=== PATIENT | male | born 1965 | race Caucasian/White ===

== ENCOUNTER 2017-08-12 18:02 | Emergency (ER) | payer BC ==
[~2017-08-12] VITALS: Ht 175.3 cm; Wt 87.3 kg
[~2017-08-12 18:02] MED LIST: ATEN50TA8 PO; CLX20 PO; PERCOCET 5/325M1 TAB PO; ZCRUNK
[2017-08-12 18:30] VITALS: BP 127/82; PULSE 67; TEMP 36.7; O2SAT 96; Ht 175.3 cm; Wt 87.3 kg
[2017-08-12] MEDS ORDERED: PROPARACAINE HCL 0.5% OP SOLN 15 ML BTL OPL STA (18:50)
[2017-08-12] MEDS ORDERED: CIPROFLOXACIN HCL 0.3% OP SOLN 2.5 ML BTL OPL STA (19:14)
--- NOTE | 2017-08-12 19:14 | EMERGENCY ROOM VISIT NOTE ---
ED Visit Note First contact with patient: 18:33 CHIEF COMPLAINT: Eye pain HISTORY OF PRESENT ILLNESS: This 52-year-old male patient presents to the emergency department by private vehicle complaining of pain in the left eye since yesterday. 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 He also states he got a small flash from the tack welder in his left eye and thinks that is causing some irritation as well. Today he had increasing pain in his left eye. There has been a constant moderate pain and irritation, redness and clear watery discharge from the eye. He reports increased pain with blinking. There is a mild blurring of vision at times and light bothers the eye. The vision has not been decreased over all. The patient does not wear contacts. The patient rates the pain as burning and scratching and 8/10. The patient has not had previous injuries to this eye. Tetanus shot is up to date. REVIEW OF SYSTEMS: A 6 system review of systems was completed with positives and pertinent negatives listed in the HPI. ALLERGIES: NKA MEDICATIONS: Reviewed in chart. PMH: Hypertension, hyperlipidemia, depression. SOCIAL HISTORY: Lives at home. Current everyday smoker. PHYSICAL EXAM: Vital Signs: Reviewed Nurse's notes, vital signs stable. Visual acuity 20/15 in the right eye, unable to obtain in the left eye due to pain. GENERAL: This is a 52-year-old male, in no acute distress, but who is uncomfortable from the eye problem. Well-developed well-nourished. EYES: The pupils are equal round and reactive to light and accommodation. EOMs are full and without tenderness. There is discharge of clear tears from the left eye which is injected. There is a small black foreign body visible under the eyelid after lid eversion, the lid was swept and this was successfully removed. Patient reported immediate improvement after removal of the FB. Funduscopic exam reveals no hemorrhages, papilledema, or other abnormalities. No foreign body was seen embedded in the cornea under slit lamp exam. The cornea was clear and no hyphema was seen. Fluorescein uptake was observed with ultraviolet light significant for multiple linear corneal abrasions at the 5 o' clock position overlying the iris. There is also diffuse uptake of fluorescein and generalized haziness of the cornea suggestive of UV keratitis. EMERGENCY DEPARTMENT COURSE: I examined the patient. Foreign body was removed from under the upper lid with immediate improvement in patient's pain. Proparacaine 2 drops were placed in the patient's left eye. Patient's vision grossly intact with correction on exam after I pain controlled. A slit lamp exam was performed as above, noting a mild UV keratitis and corneal abrasion. Ciloxan two drops was placed in the patient's left eye. Patient was provided with an Rx for Lacri-Lube. Patient was educated regarding ongoing management of his eye, follow-up, and return precautions should his symptoms worsen, he verbalized understanding. The patient was discharged home in good condition. Current/Historical Medications Scheduled , 1 TAB PO Q4-6HR PRN Artificial Tears Oph Oint (Lacri-Lube Sop Oph Oint), 0.25-0.5 INCH OPL QID Atenolol (Tenormin), 50 MG PO DAILY Citalopram (Celexa *), 20 MG PO DAILY Miscellaneous Medications Simvastatin (Zocor Unkown Dose) Allergies Coded Allergies: No Known Allergies (Unverified , 08/12/17) Vital Signs Date Time Temp Pulse Resp B/P (MAP) Pulse Ox O2 Delivery O2 Flow Rate FiO2 08/12/17 18:30 36.7 67 18 127/82 96 Room Air Medications Administered Medications (Trade) Dose Ordered Sig/Shahriar Route Start Time Stop Time Status Last Admin Dose Admin Ciprofloxacin HCl (Ciprofloxacin 0.3% Op Soln) 2 drops NOW STAT OPL 08/12/17 19:14 08/12/17 19:16 DC 08/12/17 19:54 2 DROPS Departure Information Impression Primary Impression: Left corneal abrasion Additional Impressions: UV keratitis Foreign body of left eyelid Dispostion Home / Self-Care Condition GOOD Prescriptions Artificial Tears Oph Oint (Lacri-Lube Sop Oph Oint) Oint 0.25-0.5 INCH OPL QID for 5 Days, #1 TUBE TO THE AFFECTED EYE UP TO QID PRN Prov: Lori Richardson CRNP 08/12/17 Referrals No Doctor, Assigned (PCP) Patient Instructions ED Eye Injury Corneal Abrasion, ED Keratitis UV, [facility] Additional Instructions DISCHARGE INSTRUCTIONS AND TREATMENT: Use the Ciloxin two drops in the left eye every two hours while awake for two days; then two drops every four hours while awake for three days. Use the prescribed Lacrilube ointment to the left eye 3-4 times a day for comfort. Use Ibuprofen 600 mg or Tylenol 1000 mg every 6 hrs as needed for moderate pain. Cool compresses to the outer eye as needed for comfort. Please follow up with your eye doctor in 24-48 hours for a recheck, or return to the ER if you are unable to get in with your eye doctor. Return to the ED for increasing pain, discharge from the eye, or new changes in vision. Problem Qualifiers Primary Impression: Left corneal abrasion Encounter type: initial encounter Qualified Codes: S05.02XA - Injury of conjunctiva and corneal abrasion without foreign body, left eye, initial encounter Additional Impressions: UV keratitis Laterality: left Qualified Codes: H16.132 - Photokeratitis, left eye
[2017-08-12] MEDS ORDERED: ARTIOIN OPL (19:52)
== END 2017-08-12 19:57 | disposition home or self-care (01) ==
LOC: C.EDB 18:04 → C.EDD 19:57
DX: T15.02XA Foreign body in cornea, left eye, initial encounter (principal); X58.XXXA Exposure to other specified factors, initial encounter; H16.132 Photokeratitis, left eye; I10 Essential (primary) hypertension; E78.5 Hyperlipidemia, unspecified; F32.9 Major depressive disorder, single episode, unspecified; F17.210 Nicotine dependence, cigarettes, uncomplicated; Z79.899 Other long term (current) drug therapy